=== PATIENT | female | born 1995 | race Caucasian/White ===

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

== ENCOUNTER → 2017-04-20 | Outpatient (CLI) | payer OTHER ==
[~2017-04-20] MED LIST changes: +CEPHALEXIN250 MG/5 M PO; +TYLENOL W/ CODEI5 ML PO
[2017-04-20 10:47] LABS: BASO % 0.2 % (0.0-1.0); EOS # 0.1 10*3/uL (0.0-0.4); EOS % 1.6 % (1.0-4.0); HEMATOCRIT 43.4 % (37.0-47.0); LYMPH # 2.2 10*3/uL (1.3-4.4); LYMPH % 25.7 % (27.0-41.0); MEAN CELL VOLUME 86.1 fl (81.0-99.0); MEAN CORPUSCULAR HGB 27.8 pg (27.0-31.0); MEAN CORPUSCULAR HGB CONC 32.3 g/dl (33.0-37.0); MEAN PLATELET VOLUME 10.5 fl (9.6-12.3); MONO # 0.4 10*3/uL (0.1-1.0); MONO % 4.9 % (3.0-9.0); NEUT # 5.9 10*3/uL (2.3-7.9); NEUT % 67.3 % (47.0-73.0); PLATELET COUNT AUTOMATED 257 10*3/uL (130-400); RED BLOOD COUNT 5.04 10*6/uL (4.10-5.10); RED CELL DISTRI WIDTH 12.5 % (0-14.5); WHITE BLOOD COUNT 8.7 10*3/uL (4.8-10.8)
[2017-04-20 11:07] LABS: HEMOGLOBIN A1c 5.2 % (4.8-5.6)
[2017-04-20 11:15] LABS: ALBUMIN 3.7 gm/dl (3.1-4.5); BILIRUBIN, TOTAL 0.7 mg/dl (0.2-1.0); BUN 13 mg/dl (7-24); CARBON DIOXIDE 27 mmol/L (21-32); CHLORIDE 103 mmol/L (98-107); CHOLESTEROL 134 mg/dL (<200); EST GLOM FILT AFRICAN AMERICAN > 60 ml/min; GLUCOSE 93 mg/dL (65-99); POTASSIUM 3.7 mmol/L (3.5-5.1); SGOT/AST 15 IU/L (3-35); SGPT/ALT 27 U/L (12-78); SODIUM 138 mmol/L (136-145); TOTAL PROTEIN 7.6 gm/dL (6.4-8.2); TRIGLYCERIDES 112 mg/dl (<150); VLDL CHOLESTEROL 22 mg/dL (6-40)
[2017-04-20 11:24] LABS: ALKALINE PHOSPHATASE 106 U/L (45-117); HDL CHOLESTEROL 60 mg/dl (40-60); LDL CHOLESTEROL 52 mg/dL (9-159)
[2017-04-20 13:34] LABS: VITAMIN D, 25-HYDROXY 25.7 ng/mL (30-100)
== END | disposition home or self-care (01) ==
LOC: LAB 10:24
PROVIDERS: General Practice
DX: E28.2 Polycystic ovarian syndrome (principal); E55.9 Vitamin D deficiency, unspecified; R79.9 Abnormal finding of blood chemistry, unspecified

== ENCOUNTER → 2017-05-22 | Outpatient (CLI) | payer OTHER | END | disposition home or self-care (01) | LOC: US 04-22 14:00 | DX: E28.2 Polycystic ovarian syndrome (principal); E28.0 Estrogen excess ==

== ENCOUNTER 2017-07-17 16:38 | Emergency (ER) | payer OTHER ==
[~2017-07-17] VITALS: Wt 106.6 kg
[2017-07-17] MEDS ORDERED: PREDNISONE10 MG PO (16:53)
== END 2017-07-17 20:36 | disposition home or self-care (01) ==
LOC: ED 16:38
DX: M77.51 Other enthesopathy of right foot and ankle (principal); R03.0 Elevated blood-pressure reading, without diagnosis of hypertension; Z79.899 Other long term (current) drug therapy; Z88.1 Allergy status to other antibiotic agents

== ENCOUNTER 2017-09-20 14:25 | Emergency (ER) | payer OTHER ==
[~2017-09-20] VITALS: Ht 165.1 cm; Wt 110.2 kg
[~2017-09-20 14:25] MED LIST changes: +PREDNISONE10 MG PO
[2017-09-20] MEDS ORDERED: DELTASONE20 M1 PO (15:47)
[2017-09-20] MEDS ORDERED: VENTOLIN 02.5 MG/3 M INH (15:47)
== END 2017-09-20 15:52 | disposition home or self-care (01) ==
LOC: ED 14:25
DX: J45.901 Unspecified asthma with (acute) exacerbation (principal); Z88.8 Allergy status to other drugs, medicaments and biological substances; Z88.1 Allergy status to other antibiotic agents; Z79.899 Other long term (current) drug therapy

== ENCOUNTER 2018-02-23 22:12 | Emergency (ER) | payer OTHER ==
[~2018-02-23] VITALS: Ht 167.6 cm; Wt 110.2 kg
[~2018-02-23 22:12] MED LIST changes: +DELTASONE20 M1 PO; +VENTOLIN 02.5 MG/3 M INH
[2018-02-23 22:52] LABS: BILIRUBIN NEGATIVE (NEGATIVE); BLOOD NEGATIVE (NEGATIVE); CLARITY SL CLOUDY (CLEAR); COLOR YELLOW (YELLOW); GLUCOSE NEGATIVE (NEGATIVE); KETONE NEGATIVE (NEGATIVE); LEUKO ESTERASE 2+ (NEGATIVE); NITRITE NEGATIVE (NEGATIVE); UROBILINOGEN 0.2 E.U./dl (0.2-1.0)
[2018-02-23 23:03] LABS: EPITHELIAL CELLS 45-50
[2018-02-23 23:04] LABS: BACTERIA TRACE; WBC 21-30 wbc/hpf (0-5)
[2018-02-23] MEDS ORDERED: MACROBID100 M1 PO (23:14)
== END 2018-02-24 | disposition home or self-care (01) ==
LOC: ED 22:12
PROVIDERS: Physician Assistant
DX: N39.0 Urinary tract infection, site not specified (principal); Z79.899 Other long term (current) drug therapy; Z88.1 Allergy status to other antibiotic agents

== ENCOUNTER 2019-02-05 13:24 | Emergency (ER) | payer OTHER ==
[~2019-02-05] VITALS: Ht 167.6 cm; Wt 113.4 kg
[~2019-02-05 13:24] MED LIST changes: +MACROBID100 M1 PO
[2019-02-05] MEDS ORDERED: PEPCID20 MG PO (13:46)
[2019-02-05] MEDS ORDERED: Motrin,Rufen400 MG PO (13:46)
[2019-02-05] MEDS ORDERED: TYLENOL325 M1 PO (13:46)
[2019-02-05] MEDS ORDERED: PENICILLIN-VK500 MG PO (13:46)
== END 2019-02-05 13:56 | disposition home or self-care (01) ==
LOC: ED 13:24
DX: K08.89 Other specified disorders of teeth and supporting structures (principal); J45.909 Unspecified asthma, uncomplicated; E66.9 Obesity, unspecified; Z88.8 Allergy status to other drugs, medicaments and biological substances; Z88.1 Allergy status to other antibiotic agents; Z79.2 Long term (current) use of antibiotics; Z79.899 Other long term (current) drug therapy

== ENCOUNTER 2025-05-31 09:13 | Emergency (ER) | payer OTHER ==
[~2025-05-31] VITALS: Ht 165.1 cm; Wt 131.5 kg
[~2025-05-31 09:13] MED LIST changes: +Motrin,Rufen400 MG PO; +PENICILLIN-VK500 MG PO; +PEPCID20 MG PO; +TYLENOL325 M1 PO
[2025-05-31] MEDS ORDERED: diazePAM 5 MG TAB PO ONE (09:40)
[2025-05-31] MEDS ORDERED: Acetaminophen/Oxycodone 5 MG/325 MG TABLET PO ONE (09:40)
[2025-05-31] MEDS ORDERED: CYCLOBENZAPRINE10 MG PO (10:28)
[2025-05-31] MEDS ORDERED: MELOXICAM15 MG PO (10:28)
== END 2025-05-31 11:00 | disposition home or self-care (01) ==
LOC: ED 09:13
DX: M54.50 Low back pain, unspecified (principal); J45.909 Unspecified asthma, uncomplicated; Z79.899 Other long term (current) drug therapy; Z88.1 Allergy status to other antibiotic agents; Z98.890 Other specified postprocedural states